=== PATIENT | female | born 1990 | race Caucasian/White ===

== ENCOUNTER 2016-12-11 07:35 | Emergency (ER) | payer BC ==
[2016-12-11 07:49] VITALS: BP 128/82
--- NOTE | 2016-12-11 10:23 | UC ---
Vinnie Mccoy Salem, scribed for Timur Guevara MD on 12/11/16 at 0821 . General HPI - HPI Summary HPI Summary: Patient is a 26 y/o F who presents with a sore throat since 6 days ago. She reports cough (worse at night and morning), cough induced vomiting, tinnitus of left ear, wheezing, but denies headache, sinus pressure, fever, or chills. PMHx of asthma. Patients medication reviewed this visit. - History of Current Complaint Chief Complaint: UCGeneralIllness Stated Complaint: THROAT PAIN Time Seen by Provider: 12/11/16 08:23 Hx Obtained From: Patient Onset/Duration: Gradual Onset, Lasting Days, Still Present Timing: Constant Onset Severity: Moderate Current Severity: Moderate Pain Intensity: 0 Aggravating: Nothing. Alleviating: Nothing. Associated Signs & Symptoms: Positive: Cough, Wheezing. Negative: Fever, Headache - Allergy/Home Medications Allergies/Adverse Reactions: Allergies Allergy/AdvReac Type Severity Reaction Status Date / Time Cefaclor [From Ceclor] Allergy Rash Verified 12/11/16 07:48 Cefixime [From Suprax] Allergy Rash Verified 12/11/16 07:48 Sodium Benzoate [From Suprax] Allergy Rash Verified 12/11/16 07:48 Home Medications: Home Medications Albuterol HFA INHALER* [Ventolin HFA Inhaler*] 2 puff PO PRN 12/11/16 [History] Triamcinolone NASAL SPRAY* [Nasacort Aq Nasal [place]*] 2 spr NASAL PRN 12/11/16 [ History] PMH/Surg Hx/FS Hx/Imm Hx Respiratory History: Asthma - Surgical History Surgical History: None - Family History Known Family History: Negative: Diabetes - Social History Alcohol Use: Occasionally Substance Use Type: None Smoking Status (MU): Never Smoked Tobacco Review of Systems Constitutional: Negative ENT: Sore Throat, Other - Tinnitus - Left. No sinus pressure. Respiratory: Cough, Other - Wheezing. Gastrointestinal: Vomiting Neurological: Negative All Other Systems Reviewed And Are Negative: Yes Physical Exam Triage Information Reviewed: Yes Vital Signs: Initial Vital Signs Temp 99.2 F 12/11/16 07:40 Pulse 101 12/11/16 07:40 Resp 18 12/11/16 07:40 BP 128/82 12/11/16 07:40 Pulse Ox 100 12/11/16 07:40 Elevated diastolic blood pressure noted and patient informed to follow up with PCP. Vital Signs Reviewed: Yes - Additional Comments The patient is well-nourished in no acute distress and in no acute pain. The skin is warm and dry and skin color reflects adequate perfusion. HEENT: The head is normocephalic and atraumatic. The pupils are equal and reactive. The conjunctivae are clear and without drainage. Nares are patent and without drainage. Mouth reveals moist mucous membranes. The throat is mildly erythema, but no exudate. Tonsil not visualized. Mild post-nasal drip. No sinus tenderness. The external ears are intact. The ear canals are patent and without drainage. The tympanic membranes are intact. Neck is supple with full range of motion and non-tender. Respiratory: Chest is non-tender. Rhonchi on left base. Cardiovascular: Heart is regular rate and rhythm. There is no murmur or rub auscultated. There is no peripheral edema and pulses are symmetrical and equal. Abdomen: The abdomen is soft and non-tender. Musculoskeletal: There is no back pain noted. Extremities are non-tender with full range of motion. There is good capillary refill. There is no peripheral edema or calf tenderness elicited. Neurological: Patient is alert and oriented to person, place and time. The patient has symmetrical motor strength in all four extremities. Psychiatric: The patient has an appropriate affect and does not exhibit any anxiety or depression. Course/Dx - Course Course Of Treatment: 26 y/o F presents with a sore throat since 6 days ago. She reports, cough induced vomiting, tinnitus of left ear, wheezing, but denies headache, sinus pressure, fever, or chills. Pt will be DCd with Z-pack and Tylenol, and follow up to PCP. - Differential Dx - Multi-Symptom Differential Diagnoses: Other - sinusitis, pneumonia,bronchitis, uri Provider Diagnoses: Bronchitis. Discharge - Discharge Plan Condition: Stable Disposition: HOME Prescriptions: Azithromycin TAB* [Zithromax TAB (Z-D[place]) 250 mg #6 tabs] 2 tab PO .TODAY, THEN 1 DAILY #1 [place] guaiFENesin/CODIEN 100MG-10MG* [Robitussin AC 100Mg-10Mg*] 10 ml PO Q4H PRN # 120 udc MDD 4 PRN Reason: cough Patient Education Materials: Acute Bronchitis (ED) Forms: *Work Release Referrals: Naina Recio MD [Primary Care Provider] - Additional Instructions: Please follow up with your primary care provider. The documentation as recorded by the Vinnie plata Salem accurately reflects the service I personally performed and the decisions made by me, Timur Guevara MD.
== END 2016-12-11 08:39 | disposition home or self-care (01) ==
LOC: UCEAST 07:35
DX: J40 Bronchitis, not specified as acute or chronic (principal); Z88.1 Allergy status to other antibiotic agents
CPT/HCPCS: 99212; G0463

== ENCOUNTER 2017-11-25 08:25 | Emergency (ER) | payer BC ==
[2017-11-25 08:37] VITALS: BP 122/79
[2017-11-25] MEDS ORDERED: Lidocaine 2% VISCOUS* 15 ML UDC PO ONE (09:17)
--- NOTE | 2017-11-25 09:17 | UC ---
Alva Mccoy Elizabeth, scribed for Jodie Mckeon MD on 11/25/17 at 0912 . Throat Pain/Nasal Chris HPI - HPI Summary HPI Summary: This patient is a 27 year old F presenting to [facility] with a chief complaint of left side sore throat since 3 days ago. The patient rates the pain 0/10 in severity. Symptoms aggravated by nothing. Symptoms alleviated by nothing. Patient reports post-nasal drip, nausea, and ear ache. Patient denies vomiting and . - History of Current Complaint Chief Complaint: UCRespiratory Stated Complaint: SORE THROAT Time Seen by Provider: 11/25/17 08:38 Hx Obtained From: Patient Hx Last Menstrual Period: several years ago- has IUD Onset/Duration: Gradual Onset, Lasting Days - 2 days, Still Present Severity: Mild Pain Intensity: 0 Pain Scale Used: 0-10 Numeric Associated Signs & Symptoms: Positive: Negative - NEGATIVE FEVER, Other - NAUSEA , EAR PAIN, SORE THROAT - Allergies/Home Medications Allergies/Adverse Reactions: Allergies Allergy/AdvReac Type Severity Reaction Status Date / Time cefaclor Allergy Hives Verified 11/25/17 08:38 cefixime [From Suprax] Allergy Hives Verified 11/25/17 08:38 Home Medications: Home Medications Phenol 1.4% [place]* [Chloroseptic Throat [place]*] 11/25/17 [History] PMH/Surg Hx/FS Hx/Imm Hx Previously Healthy: Yes - Surgical History Surgical History: None - Family History Known Family History: Positive: Hypertension, Other - High cholesterol Negative: Diabetes - Social History Occupation: Employed Full-time Alcohol Use: Occasionally Substance Use Type: None Smoking Status (MU): Never Smoked Tobacco Review of Systems Skin: Negative - NEGATIVE RASH ENT: Sore Throat, Ear Ache Gastrointestinal: Negative - NEGATIVE VOMITING, Nausea Neurological: Negative - NEGATIVE HEADACHE All Other Systems Reviewed And Are Negative: Yes Physical Exam Vital Signs: Initial Vital Signs Temp 97.7 F 11/25/17 08:35 Pulse 84 11/25/17 08:35 Resp 14 11/25/17 08:35 BP 122/79 11/25/17 08:35 Pulse Ox 99 11/25/17 08:35 Discharge - Discharge Plan Referrals: Naina Recio MD [Primary Care Provider] - The documentation as recorded by the Alva plata Elizabeth accurately reflects the service I personally performed and the decisions made by me, Jodie Mckeon MD.
== END 2017-11-25 09:44 | disposition home or self-care (01) ==
LOC: UCEAST 08:25
DX: J02.9 Acute pharyngitis, unspecified (principal); R09.82 Postnasal drip; H92.09 Otalgia, unspecified ear; R11.0 Nausea
CPT/HCPCS: 87651; 99212; G0463

== ENCOUNTER 2024-05-02 04:58 | Inpatient (IN) ==
[2024-05-02 06:12] LABS: ABS Eosinophils 0.2 10^3/uL (0.0-0.5); ABS Lymphocytes 1.8 10^3/uL (1.0-4.8); ABS Monocytes 0.8 10^3/uL (0.0-0.9); ABS Neutrophils 4.9 10^3/uL (1.5-7.6); ABS Nucleated RBC 0.01 10^3/ul; Eosinophil % 2.5 %; Hematocrit 32.9 % (35-45); Hemoglobin 11.2 g/dL (11.5-14.3); Mean Corpuscular Hemoglobin 29.7 pg (27-33); Mean Corpuscular Hgb Conc 34.1 g/dL (31-36); Mean Corpuscular Volume 87.2 fL (80-97); Mean Platelet Volume 9.4 fL (7.5-11.2); Nucleated Red Blood Cells % 0.1 %/100WBC (0.0-0.8); Platelet Count 193 10^3/uL (150-450); Red Blood Count 3.78 10^6/uL (3.63-4.92); White Blood Count 7.6 10^3/uL (3.8-11.8)
[2024-05-02] MEDS: Lactated Ringers 1000 ml BAG 1,000 ML IV ONE (06:13)
[2024-05-02] MEDS: Sodium Citrate/Citric Acid LIQ 15 ML UDC PO ONE ×2 (06:13→07:14)
[2024-05-02] MEDS: Buffered Lidocaine 1% SYRIN 1 ml INTRADERM ONE (07:14)
[2024-05-02] MEDS ORDERED: Morphine PF AMP (0.5MG/ML) 5 MG/10 ML AMP ONE (07:25)
[2024-05-02] MEDS ORDERED: fentaNYL 100 mcg/2 ml 50 MCG/ML VIAL ONE (07:26)
[2024-05-02] MEDS ORDERED: Ondansetron 4 mg VIAL 2 MG/ML 2 ml VIAL ONE (07:55)
[2024-05-02] MEDS: Phenylephrine 40 mcg/mL 10mL (400mcg) SYRINGE ONE (08:00)
[2024-05-02] MEDS: Lactated Ringers 1000 ml BAG 1,000 ML IV SCH (08:10)
[2024-05-02] MEDS: ceFOXitin 2 GM IVPREMIX 2 GM/50 ML BAG IVPB ONE (08:23)
[2024-05-02] MEDS ORDERED: Phenylephrine IV 10 MG/ML 1 ml VIAL ONE (08:34)
[2024-05-02] MEDS ORDERED: Oxytocin 10 UNITS/ML 1 ML VIAL ONE (08:46)
[2024-05-02 09:17] LABS: Urine Appearance Clear; Urine Bilirubin Negative (Negative); Urine Blood Negative (Negative); Urine Color Colorless; Urine Glucose Negative (Negative); Urine Ketones Negative (Negative); Urine Nitrite Negative (Negative); Urine Protein Negative (Negative); Urine Specific Gravity 1.008 (1.002-1.030); Urine Urobilinogen Negative (Negative)
[2024-05-02 09:45] LABS: Urine Benzodiazepine Screen None Detected (None Detect); Urine Cannabinoids Screen None Detected (None Detect); Urine Opiates Screen None Detected (None Detect)
[2024-05-02] MEDS ORDERED: Naloxone 0.4 mg VIAL 0.4 mg/ml 1 ml VIAL IV PUSH PRN (09:46)
[2024-05-02] MEDS ORDERED: Naloxone 0.4 mg VIAL 0.4 mg/ml 1 ml VIAL IV PRN (09:46)
[2024-05-02] MEDS ORDERED: Metoclopramide 5 MG/ML VIAL (10 mg) IV PRN (09:46)
[2024-05-02] MEDS ORDERED: Ondansetron 4 mg VIAL 2 MG/ML 2 ml VIAL IV PRN (09:46)
[2024-05-02] MEDS ORDERED: Glycerin ADULT 2.4 gm SUPP PR PRN (09:58)
[2024-05-02] MEDS ORDERED: Witch Hazel PAD JAR TOPICAL PRN (09:58)
[2024-05-02] MEDS ORDERED: Dibucaine 1% OINT 28.35 GM TUBE PR PRN (09:58)
[2024-05-02] MEDS ORDERED: Lactated Ringers 1000 ml BAG 1,000 ML IV SCH (10:00)
[2024-05-02] MEDS: Oxytocin in LR 20,000 MILLI.UNIT/1,000 ML BAG IV SCH (10:34)
[2024-05-02] MEDS: Oxytocin in LR 20,000 MILLI.UNIT/1,000 ML BAG IV ONE (10:39)
[2024-05-02] MEDS: Acetaminophen IV 1 GM/100ML 1,000 MG/100 ML BAG IV PRN (13:24)
[2024-05-03 06:54] LABS: ABS Eosinophils 0.2 10^3/uL (0.0-0.5); ABS Lymphocytes 1.7 10^3/uL (1.0-4.8); ABS Monocytes 1.2 10^3/uL (0.0-0.9); ABS Neutrophils 8.1 10^3/uL (1.5-7.6); Eosinophil % 2.1 %; Hematocrit 32.5 % (35-45); Lymphocyte % 15.3 %; Mean Corpuscular Hgb Conc 33.7 g/dL (31-36); Mean Corpuscular Volume 88.9 fL (80-97); Mean Platelet Volume 9.4 fL (7.5-11.2); Platelet Count 183 10^3/uL (150-450); Red Blood Count 3.66 10^6/uL (3.63-4.92); White Blood Count 11.3 10^3/uL (3.8-11.8)
[2024-05-04 08:18] VITALS: BP 97/64
== END 2024-05-04 11:15 | disposition home or self-care (01) | DRG 540 ==
LOC: MCHOB 04:58
PROVIDERS: ADMIT Obstetrics & Gynecology; ATTEND Obstetrics & Gynecology